=== PATIENT | female | born 1970 | race Hispanic/Latino ===

== ENCOUNTER 2018-01-01 15:53 | Outpatient (CLI) | payer BC | END 2018-01-01 15:54 | disposition home or self-care (01) | LOC: BICMAMMO 15:53 | PROVIDERS: ATTEND Nurse Practitioner Family | DX: Z12.31 Encounter for screening mammogram for malignant neoplasm of breast (principal); Z80.3 Family history of malignant neoplasm of breast | CPT/HCPCS: 77063; 77067 ==

== ENCOUNTER 2018-09-27 22:51 | Emergency (ER) | payer BC, SELFPAY ==
[~2018-09-27 22:51] MED LIST: Iopamidol 370 76% 100 ML VIAL ONE
[2018-09-27] MEDS ORDERED: Ondansetron PF 4 MG/2 ML Vial ONE (23:05)
[2018-09-27 23:36] LABS: #Eosinphils 0.1 thou/uL (0.0-0.7); #Lymphocytes 2.1 thou/uL (1.20-3.40); #Monocytes 0.4 thou/uL (0.11-0.59); #Neutrophils 5.6 thou/uL (1.40-6.50); %Basophils 0.3 % (0.0-1.0); %Eosinophils 0.8 % (0.0-10.0); %Monocytes 5.4 % (0.0-10.0); %Neutrophils 67.5 % (42.0-75.0); Hemoglobin 14.8 g/dL (12.0-16.0); Mean Corpuscular HGB CONC 34.1 g/dL (32.0-36.0); Mean Corpuscular Hemoglobin 31.5 pg (27.0-31.0); Mean Corpuscular Volume 92.3 fL (78.0-98.0); Mean Platelet Volume 9.4 fL (7.4-10.4); Platelet Count 275 thou/uL (130-400); RBC Distribution Width 11.7 % (11.5-14.5); Red Blood Cell (RBC) Count 4.68 mill/uL (4.20-5.40); White Blood Cell (WBC) Count 8.2 thou/uL (4.8-10.8)
[2018-09-27 23:57] LABS: ALT (SGPT) 48 U/L (8-55); AST (SGOT) 49 U/L (5-34); Albumin 4.4 g/dL (3.5-5.0); Alkaline Phosphatase 84 U/L (40-150); Anion Gap 17 mmol/L (10-20); BUN (Urea Nitrogen) 14 mg/dL (7.0-18.7); Bilirubin, Total 0.4 mg/dL (0.2-1.2); Calc. Creatinine Clearance 0 mL/min (70-130); Carbon Dioxide 17 mmol/L (22-29); Chloride 107 mmol/L (98-107); Estimated GFR-MDRD 81; Glucose 106 mg/dL (70-105); Lipase 26 U/L (8-78); Potassium 3.8 mmol/L (3.5-5.1); Protein, Total 8.4 g/dL (6.0-8.3); Sodium 137 mmol/L (136-145)
[2018-09-28] MEDS ORDERED: Pantoprazole 40 MG VIAL ONE (00:07)
[2018-09-28 00:39] LABS: Bilirubin Negative (Negative); Blood, Urine Negative (Negative); Clarity CLEAR (Clear); Glucose, Urine (Dipstick) Negative (Negative); Leukocyte Negative (Negative); Nitrite Negative (Negative); Protein, Urine (Dipstick) Negative (Neg-Trace); Urobilinogen 0.2 mg/dL (0.2-1.0)
[2018-09-28 00:44] LABS: Specific Gravity, Urine Greater than 1.060 (1.002-1.036)
--- NOTE | 2018-09-28 07:45 | CT ---
ABDOMEN AND PELVIC CT SCAN WITH IV CONTRAST: HISTORY: Abdominal pain, nausea, vomiting, and diarrhea. FINDINGS: The lung bases are clear. There is a small hiatal hernia. Status post cholecystectomy without signi ficant ductal dilatation. Pancreas, spleen, and adrenal glands are unremarkable. No renal calculus or acute obstruction. Normal-appearing appendix. Uterus and adnexal regions unremarkable. There is scattered fluid involving the stomach, small bowel, and colon without evidence for obstruction or significant abnormal bowel dilatation. IMPRESSION: Small hiatal hernia. Fluid noted in the stomach, nondilated small bowel, and nondilated colon, nonsp ecific. This could be some very mild nonspecific enterocolitis and could account for diarrhea. No e vidence for other significant acute process. POS: [facility]
== END 2018-09-28 01:16 | disposition home or self-care (01) ==
LOC: ERS 22:51
DX: K52.9 Noninfective gastroenteritis and colitis, unspecified (principal); F41.9 Anxiety disorder, unspecified
CPT/HCPCS: 74177; 80053; 81003; 83630; 83690; 85025; 87045; 87046; 87324; 87449; 87899; 93005; 96361; 96372; 96374; 96375; C9113; J2405

== ENCOUNTER 2020-03-01 06:20 | Emergency (ER) | payer OTHER, SELFPAY ==
[2020-03-02 11:55] LABS: SARS-CoV-2 MS2 Positive; SARS-CoV-2 N Gene Negative; SARS-CoV-2 S Gene Negative; SARS-CoV-2 orf1ab Negative
== END 2020-03-01 06:56 | disposition home or self-care (01) ==
LOC: ERS 06:20
DX: Z20.828 Contact with and (suspected) exposure to other viral communicable diseases (principal); F41.9 Anxiety disorder, unspecified
CPT/HCPCS: 87635; 99283; U0003

== ENCOUNTER 2020-03-08 20:40 | Emergency (ER) | payer SELFPAY ==
[2020-03-08] MEDS ORDERED: HYDROcodone/Acetaminophen 5/325 mg Tablet ONE (21:13)
[2020-03-08] MEDS ORDERED: Ibuprofen 200 MG TAB ONE (21:13)
[2020-03-08] MEDS ORDERED: Bupivacaine 0.5% 10 ML VIAL ONE (21:55)
--- NOTE | 2020-03-09 08:55 | RAD ---
RIGHT MIDDLE FINGER: HISTORY: Injury to finger. FINDINGS: There are signs of fracture or dislocation. The DIP joint is held in some minimal flexion. IMPRESSION: No evidence of fracture. Minimal flexion deformity to the digital interphalangeal joint. Clinical c orrelation as to any possibility of an extensor tendon injury. POS: [facility]
== END 2020-03-08 23:17 | disposition home or self-care (01) ==
LOC: ERS 20:40
DX: S66.392A Other injury of extensor muscle, fascia and tendon of right middle finger at wrist and hand level, initial encounter (principal); F41.9 Anxiety disorder, unspecified; X50.9XXA Other and unspecified overexertion or strenuous movements or postures, initial encounter
CPT/HCPCS: J3490

== ENCOUNTER 2020-05-17 11:20 | Emergency (ER) | payer OTHER ==
[2020-05-17 18:28] LABS: SARS-CoV-2 MS2 Positive; SARS-CoV-2 N Gene Negative; SARS-CoV-2 S Gene Negative; SARS-CoV-2 by NAA Not Detected (NotDetected); SARS-CoV-2 orf1ab Negative
== END 2020-05-17 11:54 | disposition home or self-care (01) ==
LOC: ERS 11:20
DX: Z20.828 Contact with and (suspected) exposure to other viral communicable diseases (principal); F41.9 Anxiety disorder, unspecified
CPT/HCPCS: 87635; 99283; U0003